=== PATIENT | male | born 1995 | race American Indian/Alaskan Native ===

== ENCOUNTER 2020-10-02 21:36 | Emergency (ER) | payer SELFPAY ==
[2020-10-02 22:24] VITALS: BP 123/69
--- NOTE | 2020-10-02 23:03 | XRay Report ---
CHEST 2 VIEWS INDICATION / CLINICAL INFORMATION: Episodes of left chestpain and cough. COMPARISON: None available. FINDINGS: SUPPORT DEVICES: None. HEART / MEDIASTINUM: No significant abnormality. LUNGS / PLEURA: No significant pulmonary or pleural abnormality. No pneumothorax. ADDITIONAL FINDINGS: No significant additional findings. IMPRESSION: 1. No acute findings. Signer Name: Aaron Simon MD Signed: 10/02/2020 10:59 PM Workstation Name: [id number]
--- NOTE | 2020-10-02 23:16 | Emergency Department Report ---
ED General Adult HPI - General Chief complaint: Chest Pain Stated complaint: CHEST PAIN/ LEG PAIN Time Seen by Provider: 10/02/20 22:54 Source: patient Mode of arrival: Ambulatory Limitations: No Limitations - History of Present Illness Initial comments: Patient is a 25-year-old male presents emergency room complaints of an episode of left-sided chest pain that began 1 hour ago. He states that it felt like a squeezing sensation. He states that he felt overheated, felt shaky, had tingling all over, felt like he was breathing fast, felt like his heart was beating fast. He states his symptoms lasted for a couple of minutes. He denies any symptoms at all currently. He denies any chest pain currently. He denies any fever, nausea, vomiting, diarrhea, cough, leg swelling. He denies any past medical history. No allergies to medications. He states he has had some increased stress and anxiety lately due to his grandfather recently passing isaías y. He denies any SI or HI. He endorses marijuana use and states that he smoked today. He endorses occasional alcohol use but denies drinking today. He denies any family history of MS/DVT/PE. - Related Data Allergies Allergy/AdvReac Type Severity Reaction Status Date / Time No Known Allergies Allergy Unverified 10/02/20 22:28 ED Review of Systems ROS: Stated complaint: CHEST PAIN/ LEG PAIN Other details as noted in HPI Comment: All other systems reviewed and negative ED Past Medical Hx - Past Medical History Previous Medical History?: No - Surgical History Past Surgical History?: No - Social History Smoking Status: Never Smoker Substance Use Type: Marijuana ED Physical Exam - General Limitations: No Limitations General appearance: alert, in no apparent distress - Head Head exam: Present: atraumatic, normocephalic - Eye Eye exam: Present: normal appearance - ENT ENT exam: Present: mucous membranes moist - Respiratory Respiratory exam: Present: normal lung sounds bilaterally. Absent: respiratory distress, wheezes, rales, rhonchi, stridor, chest wall tenderness, accessory muscle use, decreased breath sounds, prolonged expiratory - Cardiovascular Cardiovascular Exam: Present: regular rate, normal rhythm, normal heart sounds. Absent: systolic murmur, diastolic murmur, rubs, gallop - Neurological Exam Neurological exam: Present: alert, oriented X3 - Psychiatric Psychiatric exam: Present: normal affect, normal mood - Skin Skin exam: Present: warm, dry, intact ED Course Vital Signs 10/02/20 22:21 Temperature 98.1 F Pulse Rate 80 Respiratory 16 Rate Blood Pressure 123/69 O2 Sat by Pulse 98 Oximetry ED Medical Decision Making - EKG Data EKG shows normal: sinus rhythm, axis, intervals, QRS complexes, ST-T waves Rate: normal - Radiology Data Radiology results: report reviewed Ordering Physician: CHEVY PALMER III, MD Date of Service: 10/02/20 Procedure(s): XR chest routine 2V Accession Number(s): [id number] cc: CHEVY PALMER III, MD Fluoro Time In Minutes: CHEST 2 VIEWS INDICATION / CLINICAL INFORMATION: Episodes of left chestpain and cough. COMPARISON: None available. FINDINGS: SUPPORT DEVICES: None. HEART / MEDIASTINUM: No significant abnormality. LUNGS / PLEURA: No significant pulmonary or pleural abnormality. No pneumothorax. ADDITIONAL FINDINGS: No significant additional findings. IMPRESSION: 1. No acute findings. Signer Name: Aaron Simon MD Signed: 10/02/2020 10:59 PM Workstation Name: [id number] Transcribed By: SS Dictated By: Aaron Simon MD Electronically Authenticated By: Aaron Simon MD Signed Date/Time: 10/02/202258 DD/ 57 TD/TT: - Medical Decision Making Patient is a 25-year-old male presents emergency room complaints of an episode of left-sided chest pain that began 1 hour ago. He states that it felt like a squeezing sensation. He states that he felt overheated, felt shaky, had tingling all over, felt like he was breathing fast, felt like his heart was beating fast. He states his symptoms lasted for a couple of minutes. He denies any symptoms at all currently. He denies any chest pain currently. He denies any fever, nausea, vomiting, diarrhea, cough, leg swelling. He denies any past medical history. No allergies to medications. He states he has had some increased stress and anxiety lately due to his grandfather recently passing away. He denies any SI or HI. He endorses marijuana use and states that he smoked today. He endorses occasional alcohol use but denies drinking today. He denies any family history of MS/DVT/PE. Vitals are normal. EKG is within normal limits. Chest x-ray with no acute process. Symptoms appear most consistent with anxiety/panic attack. He is currently asymptomatic, no SI, no HI, no signs of acute psychosis. Patient symptoms do not appear consistent with ACS. He is PERC criteria negative for PE, PE unlikely. Advised patient Please follow-up with a primary care doctor. Please follow-up with the [facility] regarding anxiety. Return to emergency room immediately for any new or wo rsening symptoms. Critical care attestation.: If time is entered above; I have spent that time in minutes in the direct care of this critically ill patient, excluding procedure time. ED Disposition Clinical Impression: Atypical chest pain, Anxiety Disposition: DC-01 TO HOME OR SELFCARE Is pt being admited?: No Does the pt Need Aspirin: No Condition: Stable Instructions: Managing Anxiety, Adult, Chest Pain (ED) Additional Instructions: Please follow-up with a primary care doctor. Please follow-up with the [facility] regarding anxiety. Return to emergency room immediately for any new or worsening symptoms. Referrals: FARHEEN JORGENSEN MD [Staff Physician] - 2-3 Days CROPSEY FANI JEWELL MD [Primary Care Provider] - 2-3 Days [facility] [Outside] - 2-3 Days Time of Disposition: 23:15 Print Language: CHINESE
== END 2020-10-02 23:28 | disposition home or self-care (01) ==
LOC: ED 21:36
DX: R07.89 Other chest pain (principal); F41.9 Anxiety disorder, unspecified; F12.10 Cannabis abuse, uncomplicated
CPT/HCPCS: 71046; 99283